=== PATIENT | male | born 1985 | race American Indian/Alaskan Native ===

== ENCOUNTER 2021-12-13 22:25 | Inpatient (IN) | payer SELFPAY ==
--- NOTE | 2021-12-13 23:18 | XRay Report ---
CHEST 2 VIEWS INDICATION / CLINICAL INFORMATION: Chest Pain. COMPARISON: None available. FINDINGS: SUPPORT DEVICES: None. HEART / MEDIASTINUM: No significant abnormality. LUNGS / PLEURA: No significant pulmonary or pleural abnormality. No pneumothorax. ADDITIONAL FINDINGS: No significant additional findings. IMPRESSION: 1. No active cardiopulmonary disease. Signer Name: Everette Kowalski II, MD Signed: 12/13/2021 11:14 PM Workstation Name: [id number]
--- NOTE | 2021-12-13 23:28 | Emergency Department Report ---
ED Shortness of Breath HPI - General Chief Complaint: Dyspnea/Respdistress Stated Complaint: SOB Time Seen by Provider: 12/13/21 22:50 Source: patient Mode of arrival: Ambulatory Limitations: No Limitations - History of Present Illness Initial Comments: Patient is a 36-year-old male presents emergency room with complaints of shortness of breath that began this morning at 5:30 AM once he got off work. He states he is also been experiencing palpitations and states that he feels like his heart is skipping. He denies any cough, fever, vomiting, diarrhea, hemoptysis, leg swelling, calf pain. He denies any recent travel, recent surgery, sick contacts, hormone use. Patient states that he was advised when he was in juvenile snf as a teenager that he had hypertension and he was put on medication at that time but states he has not seen a doctor in several years and has not been on any medication and he does not know what he previously took. No allergies to medication. He states he does have a family cardiac history under the age of 65. He is a current every day smoker. - Related Data Allergies Allergy/AdvReac Type Severity Reaction Status Date / Time No Known Allergies Allergy Unverified 12/13/21 22:51 ED Review of Systems ROS: Stated complaint: SOB Other details as noted in HPI Comment: All other systems reviewed and negative ED Past Medical Hx - Past Medical History Previous Medical History?: No - Surgical History Past Surgical History?: No ED Physical Exam - General Limitations: No Limitations General appearance: alert, in no apparent distress - Head Head exam: Present: atraumatic, normocephalic - Eye Eye exam: Present: normal appearance - ENT ENT exam: Present: mucous membranes moist - Respiratory Respiratory exam: Absent: wheezes, rales, rhonchi, stridor, chest wall tenderness, accessory muscle use, decreased breath sounds, prolonged expiratory - Cardiovascular Cardiovascular Exam: Present: normal rhythm, tachycardia, other (frequent PVCs) - Neurological Exam Neurological exam: Present: alert, oriented X3 - Psychiatric Psychiatric exam: Present: normal affect, normal mood - Skin Skin exam: Present: warm, dry, intact ED Course Vital Signs 12/13/21 12/14/21 12/14/21 22:48 00:44 00:45 Temperature 97.6 F 98.2 F Pulse Rate 60 102 H 104 H Respiratory 20 15 25 H Rate Blood Pressure Blood Pressure 186/105 119/92 [Right] O2 Sat by Pulse 87 94 100 Oximetry 12/14/21 12/14/21 12/14/21 01:00 01:16 01:30 Temperature Pulse Rate 104 H 104 H 121 H Respiratory 17 22 16 Rate Blood Pressure 119/92 119/92 124/88 Blood Pressure [Right] O2 Sat by Pulse 95 92 92 Oximetry 12/14/21 12/14/21 12/14/21 02:00 03:46 04:00 Temperature Pulse Rate 100 H 97 H 99 H Respiratory 17 20 20 Rate Blood Pressure 131/86 131/86 147/102 Blood Pressure [Right] O2 Sat by Pulse 91 94 92 Oximetry - Consultations Consultation #1: 12/14/21 03:[address] Wagner, vascular surgery regarding patient presentation and results, he agrees with heparin drip, he advised n.p.o. except small sips of water with medications, advised hospitalist admission and he will consult on patient 12/14/21 03:[address] Pittman, hospitalist regarding patient presentation, results, consultations, will accept and resume care of patient, will admit to hospitalist service, advised IMCU admission ED Medical Decision Making - Lab Data Result diagrams: 12/14/21 02:55 12/13/21 23:16 Lab Results 12/13/21 12/13/21 12/13/21 Range/Units 23:16 23:16 23:16 WBC 12.0 H (4.5-11.0) K/mm3 RBC 5.53 H (3.65-5.03) M/mm3 Hgb 15.5 H (11.8-15.2) gm/dl Hct 48.7 H (35.5-45.6) % MCV 88 (84-94) fl MCH 28 (28-32) pg MCHC 32 (32-34) % RDW 14.3 (13.2-15.2) % Plt Count 287 (140-440) K/mm3 Lymph % (Auto) 10.3 L (13.4-35.0) % [place] % (Auto) 6.7 (0.0-7.3) % Eos % (Auto) 1.1 (0.0-4.3) % Baso % (Auto) 0.3 (0.0-1.8) % Lymph # (Auto) 1.2 (1.2-5.4) K/mm3 [place] # (Auto) 0.8 (0.0-0.8) K/mm3 Eos # (Auto) 0.1 (0.0-0.4) K/mm3 Baso # (Auto) 0.0 (0.0-0.1) K/mm3 Seg Neutrophils % 81.6 H (40.0-70.0) % Seg Neutrophils # 9.8 H (1.8-7.7) K/mm3 PT 14.4 (12.2-14.9) Sec. INR 1.01 (0.87-1.13) APTT 30.7 (24.2-36.6) Sec. D-Dimer 3670.36 H (0-234) ng/mlDDU Sodium 135 L (137-145) mmol/L Potassium 4.3 (3.6-5.0) mmol/L Chloride 97.8 L (98-107) mmol/L Carbon Dioxide 24 (22-30) mmol/L Anion Gap 18 mmol/L BUN 15 (9-20) mg/dL Creatinine 1.0 (0.8-1.3) mg/dL Estimated GFR > 60 ml/min BUN/Creatinine Ratio 15 % Glucose 137 H (75-100) mg/dL Calcium 9.2 (8.4-10.2) mg/dL Magnesium (1.7-2.3) mg/dL Total Bilirubin 0.60 (0.1-1.2) mg/dL AST 18 (5-40) units/L ALT 22 (7-56) units/L Alkaline Phosphatase 135 H (35-129) units/L Troponin T 0.012 (0.00-0.029) ng/mL NT-Pro-B Natriuret Pep (0-450) pg/mL Total Protein 8.3 H (6.3-8.2) g/dL Albumin 4.2 (3.9-5) g/dL Albumin/Globulin Ratio 1.0 % TSH (0.270-4.200) mlU/mL 12/13/21 12/13/21 12/14/21 Range/Units 23:16 23:16 02:07 WBC (4.5-11.0) K/mm3 RBC (3.65-5.03) M/mm3 Hgb (11.8-15.2) gm/dl Hct (35.5-45.6) % MCV (84-94) fl MCH (28-32) pg MCHC (32-34) % RDW (13.2-15.2) % Plt Count (140-440) K/mm3 Lymph % (Auto) (13.4-35.0) % [place] % (Auto) (0.0-7.3) % Eos % (Auto) (0.0-4.3) % Baso % (Auto) (0.0-1.8) % Lymph # (Auto) (1.2-5.4) K/mm3 [place] # (Auto) (0.0-0.8) K/mm3 Eos # (Auto) (0.0-0.4) K/mm3 Baso # (Auto) (0.0-0.1) K/mm3 Seg Neutrophils % (40.0-70.0) % Seg Neutrophils # (1.8-7.7) K/mm3 PT (12.2-14.9) Sec. INR (0.87-1.13) APTT (24.2-36.6) Sec. D-Dimer (0-234) ng/mlDDU Sodium (137-145) mmol/L Potassium (3.6-5.0) mmol/L Chloride (98-107) mmol/L Carbon Dioxide (22-30) mmol/L Anion Gap mmol/L BUN (9-20) mg/dL Creatinine (0.8-1.3) mg/dL Estimated GFR ml/min BUN/Creatinine Ratio % Glucose (75-100) mg/dL Calcium (8.4-10.2) mg/dL Magnesium 1.90 (1.7-2.3) mg/dL Total Bilirubin (0.1-1.2) mg/dL AST (5-40) units/L ALT (7-56) units/L Alkaline Phosphatase (35-129) units/L Troponin T < 0.010 (0.00-0.029) ng/mL NT-Pro-B Natriuret Pep 1405 H (0-450) pg/mL Total Protein (6.3-8.2) g/dL Albumin (3.9-5) g/dL Albumin/Globulin Ratio % TSH 2.130 (0.270-4.200) mlU/mL 12/14/21 12/14/21 Range/Units 02:55 02:55 WBC (4.5-11.0) K/mm3 RBC (3.65-5.03) M/mm3 Hgb 14.6 (11.8-15.2) gm/dl Hct 45.6 (35.5-45.6) % MCV (84-94) fl MCH (28-32) pg MCHC (32-34) % RDW (13.2-15.2) % Plt Count 257 (140-440) K/mm3 Lymph % (Auto) (13.4-35.0) % [place] % (Auto) (0.0-7.3) % Eos % (Auto) (0.0-4.3) % Baso % (Auto) (0.0-1.8) % Lymph # (Auto) (1.2-5.4) K/mm3 [place] # (Auto) (0.0-0.8) K/mm3 Eos # (Auto) (0.0-0.4) K/mm3 Baso # (Auto) (0.0-0.1) K/mm3 Seg Neutrophils % (40.0-70.0) % Seg Neutrophils # (1.8-7.7) K/mm3 PT 15.0 H (12.2-14.9) Sec. INR 1.06 (0.87-1.13) APTT 33.1 (24.2-36.6) Sec. D-Dimer (0-234) ng/mlDDU Sodium (137-145) mmol/L Potassium (3.6-5.0) mmol/L Chloride (98-107) mmol/L Carbon Dioxide (22-30) mmol/L Anion Gap mmol/L BUN (9-20) mg/dL Creatinine (0.8-1.3) mg/dL Estimated GFR ml/min BUN/Creatinine Ratio % Glucose (75-100) mg/dL Calcium (8.4-10.2) mg/dL Magnesium (1.7-2.3) mg/dL Total Bilirubin (0.1-1.2) mg/dL AST (5-40) units/L ALT (7-56) units/L Alkaline Phosphatase (35-129) units/L Troponin T (0.00-0.029) ng/mL NT-Pro-B Natriuret Pep (0-450) pg/mL Total Protein (6.3-8.2) g/dL Albumin (3.9-5) g/dL Albumin/Globulin Ratio % TSH (0.270-4.200) mlU/mL - EKG Data EKG shows normal: sinus rhythm Rate: tachycardia (111 bpm) - EKG Data 12/14/21 06:07 RAD ventricular bigemeny probable LAE no STEMI - Radiology Data Radiology results: report reviewed Ordering Physician: LANCE GUARDADO Date of Service: 12/13/21 Procedure(s): XR chest routine 2V Accession Number(s): [id number] cc: LANCE GUARDADO Fluoro Time In Minutes: CHEST 2 VIEWS INDICATION / CLINICAL INFORMATION: Chest Pain. COMPARISON: None available. FINDINGS: SUPPORT DEVICES: None. HEART / MEDIASTINUM: No significant abnormality. LUNGS / PLEURA: No significant pulmonary or pleural abnormality. No pneumothorax. ADDITIONAL FINDINGS: No significant additional findings. IMPRESSION: 1. No active cardiopulmonary disease. Signer Name: Savage Bustillos II, MD Signed: 12/13/2021 11:14 PM Workstation Name: [id number] Transcribed By: AMY Dictated By: SAVAGE BUSTILLOS II, MD Electronically Authenticated By: SAVAGE BUSTILLOS II, MD Signed Date/Time: 12/13/212313 DD/ 12 TD/TT: Ordering Physician: LANCE GUARDADO Date of Service: 12/14/21 Procedure(s): CT angio chest Accession Number(s): [id number] cc: LANCE GUARDADO CTA CHEST WITH CONTRAST INDICATION / CLINICAL INFORMATION: Pt complains of chest pain with S.O.B., Hypoxia and Tachycardia. TECHNIQUE: Axial CT images were obtained through the chest after injection of IV contrast. 3 plane MIP and/or 3D reconstructions were produced. All CT scans at this location are performed using CT dose reduction for ALARA by means of automated exposure control. COMPARISON: None available. FINDINGS: VASCULAR FINDINGS: PULMONARY ARTERY: Extensive bilateral pulmonary artery emboli with nearly occlusive emboli within the right lower lobe lobar, right middle lobe lobar, and multiple right lower lobe segmental pulmonary artery branches. Additional nearly occlusive thrombus is demonstrated within the left lower lobe lobar, segmental, and multiple subsegmental branches. Thrombus additionally extends to involve the left upper lobe subsegmental and lingular branches and within the right upper lobe. The segmental and subsegmental branches. Minimal reflux of contrast within the hepatic venous system. No obvious filling of the ventricular septum. No intracardiac thrombus.. THORACIC AORTA: No significant abnormality. CORONARY ARTERY CALCIFICATION: None. NONVASCULAR FINDINGS: LOWER NECK:Soft tissues of the lower neck and thyroid demonstrate no significant abnormalities or acute findings. HEART: No significant abnormality. MEDIASTINUM / JIMY: No significant abnormality. ESOPHAGUS: No significant abnormality. LYMPH NODES: No adenopathy within the axilla, mediastinum, or jimy. LUNGS: No acute air space or interstitial disease. PLEURA: No pleural effusion. No pneumothorax. THORACIC SOFT TISSUES: No significant abnormality of the chest wall or upper thoracic musculature. BONES: No significant skeletal abnormalities. ADDITIONAL CHEST FINDINGS: None. UPPER ABDOMEN: No significant abnormality. IMPRESSION: 1. Extensive bilateral pulmonary artery emboli as detailed. No specific fe atures of right ventricular strain, minimal reflux of contrast within the hepatic venous system is demonstrated. 2. No additional acute findings. CRITICAL RESULT Time of Discovery (COAL TRIMMER MACHINE OPERATOR/CDT): 0142 hours Time of Communication (COAL TRIMMER MACHINE OPERATOR/CDT): 0143 hours Licensed Practitioner Receiving Report: Read-Back Performed: Yes. Signer Name: Svaage Bustillos II, MD Signed: 12/14/2021 2:48 AM Workstation Name: [id number] Transcribed By: AMY Dictated By: SAVAGE BUSTILLOS II, MD Electronically Authenticated By: SAVAGE BUSTILLOS II, MD Signed Date/Time: 12/14/21247 DD/ 1 TD/TT: - Medical Decision Making Patient is a 36-year-old male presents emergency room with complaints of shortness of breath that began this morning at 5:30 AM once he got off work. He states he is also been experiencing palpitations and states that he feels like his heart is skipping. He denies any cough, fever, vomiting, diarrhea, hemoptysis, leg swelling, calf pain. He denies any recent travel, recent surgery, sick contacts, hormone use. Patient states that he was advised when he was in juvenile snf as a teenager that he had hypertension and he was put on medication at that time but states he has not seen a doctor in several years and has not been on any medication and he does not know what he previously took. No allergies to medication. He states he does have a family cardiac history under the age of 65. He is a current every day smoker. Initial vitals with elevated blood pressure which improved upon repeat, pt also found to be hypoxic at 87% on RA placed on 3L nasal cannula and improved to 95%. EKG shows tachycardia, right axis deviation, ventricular bigeminy, no STEMI. Chest x-ray 1. No active cardiopulmonary disease. lab significant for elevated D-dimer and elevated BNP. CTA chest: 1. Extensive bilateral pulmonary artery emboli as detailed. No specific features of right ventricular strain, minimal reflux of contrast within the hepatic venous system is demonstrated. 2. No additional acute findings. Patient started on heparin drip. discussed case with Dr. Abdulaziz De La Garza who advised vascular surgery consultation, agrees with heparin drip, and admit to hospitalist. Spoke to Dr. Wagner, vascular surgery regarding patient presentation and results, he agrees with heparin drip, he advised n.p.o. except small sips of water with medications, advised hospitalist admission and he will consult on patient. Spoke to Dr. Pittman, hospitalist regarding patient presentation, results, consultations, will accept and resume care of patient, will admit to hospitalist service, advised IMCU admission. Discussed all find ings with patient who is agreeable with admission. Critical Care Time: Yes Critical care time in (mins) excluding proc time.: 35 Critical care attestation.: If time is entered above; I have spent that time in minutes in the direct care of this critically ill patient, excluding procedure time. ED Disposition Clinical Impression: Bilateral pulmonary embolism, Bigeminy Acute respiratory failure Qualifiers: Respiratory failure complication: hypoxia Qualified Code(s): J96.01 - Acute respiratory failure with hypoxia Disposition: 09 ADMITTED INPATIENT Is pt being admited?: Yes Does the pt Need Aspirin: No Condition: Serious Time of Disposition: 03:04
[2021-12-14 00:21] LABS: Basophils % (Auto) 0.3 % (0.0-1.8); Eosinophils # (Auto) 0.1 K/mm3 (0.0-0.4); Eosinophils % (Auto) 1.1 % (0.0-4.3); Hematocrit 48.7 % (35.5-45.6); Hemoglobin 15.5 gm/dl (11.8-15.2); Lymphocytes # (Auto) 1.2 K/mm3 (1.2-5.4); Lymphocytes % (Auto) 10.3 % (13.4-35.0); Mean Corpuscular HGB Conc 32 % (32-34); Mean Corpuscular Volume 88 fl (84-94); Monocytes # (Auto) 0.8 K/mm3 (0.0-0.8); Monocytes % (Auto) 6.7 % (0.0-7.3); Platelet Count 287 K/mm3 (140-440); Red Blood Count 5.53 M/mm3 (3.65-5.03); Red Cell Distribution Width 14.3 % (13.2-15.2)
[2021-12-14 00:37] LABS: INR 1.01 (0.87-1.13)
[2021-12-14 00:38] LABS: Partial Thromboplastin Time 30.7 Sec. (24.2-36.6)
[2021-12-14 00:39] LABS: Alanine Aminotransferase 22 units/L (7-56); Albumin 4.2 g/dL (3.9-5); BUN/Creatinine Ratio 15; Blood Urea Nitrogen 15 mg/dL (9-20); Calcium 9.2 mg/dL (8.4-10.2); Hemolysis Index 3
[2021-12-14] MEDS ORDERED: HEPARIN 10,000 UNITS/10 ML VIAL IV ONE (02:38)
--- NOTE | 2021-12-14 02:48 | Cat Scan Report ---
CTA CHEST WITH CONTRAST INDICATION / CLINICAL INFORMATION: Pt complains of chest pain with S.O.B., Hypoxia and Tachycardia. TECHNIQUE: Axial CT images were obtained through the chest after injection of IV contrast. 3 plane [place] P and/or 3D reconstructions were produced. All CT scans at this location are performed using CT dose reduction for ALARA by means of automated exposure control. COMPARISON: None available. FINDINGS: VASCULAR FINDINGS: PULMONARY ARTERY: Extensive bilateral pulmonary artery emboli with nearly occlusive emboli within the right lower lobe lobar, right middle lobe lobar, and multiple right lower lobe segmental pulmonary a rtery branches. Additional nearly occlusive thrombus is demonstrated within the left lower lobe lobar , segmental, and multiple subsegmental branches. Thrombus additionally extends to involve the left up per lobe subsegmental and lingular branches and within the right upper lobe. The segmental and subseg mental branches. Minimal reflux of contrast within the hepatic venous system. No obvious filling of t he ventricular septum. No intracardiac thrombus.. THORACIC AORTA: No significant abnormality. CORONARY ARTERY CALCIFICATION: None. NONVASCULAR FINDINGS: LOWER NECK:Soft tissues of the lower neck and thyroid demonstrate no significant abnormalities or acu te findings. HEART: No significant abnormality. MEDIASTINUM / HAYLEY: No significant abnormality. ESOPHAGUS: No significant abnormality. LYMPH NODES: No adenopathy within the axilla, mediastinum, or hayley. LUNGS: No acute air space or interstitial disease. PLEURA: No pleural effusion. No pneumothorax. THORACIC SOFT TISSUES: No significant abnormality of the chest wall or upper thoracic musculature. BONES: No significant skeletal abnormalities. ADDITIONAL CHEST FINDINGS: None. UPPER ABDOMEN: No significant abnormality. IMPRESSION: 1. Extensive bilateral pulmonary artery emboli as detailed. No specific features of right ventricular strain, minimal reflux of contrast within the hepatic venous system is demonstrated. 2. No additional acute findings. CRITICAL RESULT Time of Discovery (AIRCRAFT MAINTENANCE SUPERVISOR/CDT): 0142 hours Time of Communication (AIRCRAFT MAINTENANCE SUPERVISOR/CDT): 0143 hours Licensed Practitioner Receiving Report: Read-Back Performed: Yes. Signer Name: Everette Kowalski II, MD Signed: 12/14/2021 2:48 AM Workstation Name: [id number]
[2021-12-14] MEDS ORDERED: HEPARIN/ 0.45% NACL DRIP 25,000 UNIT/500 ML BAG IV SCH (03:00)
[2021-12-14] MEDS ORDERED: HYDROmorphone 1 MG/1 ML INJ IV PRN (03:58)
[2021-12-14] MEDS ORDERED: MORPHINE 2 MG/1 ML INJ IV PRN (03:58)
[2021-12-14] MEDS ORDERED: ONDANSETRON 4 MG/2 ML INJ IV PRN (03:58)
[2021-12-14] MEDS ORDERED: ALBUTEROL 2.5 MG/3 ML NEBU IH PRN (03:58)
[2021-12-14] MEDS ORDERED: ACETAMINOPHEN 325 MG TAB PO PRN (03:58)
[2021-12-14] MEDS ORDERED: D5W/0.45% NACL 1,000 ML IV SCH (04:00)
--- NOTE | 2021-12-14 04:06 | History and Physical Report ---
History of Present Illness Date of examination: 12/14/21 Date of admission: 12/14/21 Chief complaint: Shortness of breath History of present illness: 36-year-old male with history of tobacco abuse was brought to the hospital because of shortness of breath that began this morning at 5:30 AM once he got off work. He states he is also been experiencing palpitations and states that he feels like his heart is skipping. He denies any cough, fever, vomiting, diarrhea, hemoptysis, leg swelling, calf pain. He denies any recent travel, recent surgery, sick contacts, hormone use. Patient states that he was advised when he was in juvenile prison as a teenager that he had hypertension and he was put on medication at that time but states he has not seen a doctor in several years and has not been on any medication and he does not know what he previously took. No allergies to medication. He states he does have a family cardiac history under the age of 65. He is a current every day smoker. In the emergency room patient is found to have PE.'s were going to admit the patient to the IMCU. We will put the patient on heparin drip and consult vascular surgeon to see the patient Past History Past Medical History: hypertension, other (Tobacco abuse) Medications and Allergies Allergies Allergy/AdvReac Type Severity Reaction Status Date / Time No Known Allergies Allergy Unverified 12/13/21 22:51 Active Meds: Active Medications Acetaminophen (Acetaminophen 325 Mg Tab) 650 mg PO Q4H PRN PRN Reason: Pain MILD(1-3)/Fever >100.5/MANTILLA Albuterol (Albuterol 2.5 Mg/3 Ml Nebu) 2.5 mg IH Q3HRT PRN PRN Reason: Shortness Of Breath Albuterol/Ipratropium (Ipratropium/Albuterol Sulfate 3 Ml Ampul.Neb) 1 ampul IH Q6HRT MINERVA Famotidine (Famotidine 20 Mg Tab) 20 mg PO BID MINERVA Hydromorphone HCl (Hydromorphone 1 Mg/1 Ml Inj) 0.5 mg IV Q3H PRN PRN Reason: Pain , Severe (7-10) Heparin Sodium/Sodium Chloride (Heparin/ 0.45% Nacl-25,000 Unit/500 Ml) 25,000 unit in 500 mls @ 24 mls/hr IV TITR MINERAV; Protocol Dextrose/Sodium Chloride (D5/0.45ns) 1,000 mls @ 100 mls/hr IV DIRECT MINERVA Morphine Sulfate (Morphine 2 Mg/1 Ml Inj) 2 mg IV Q4H PRN PRN Reason: Pain, Moderate (4-6) Ondansetron HCl (Ondansetron 4 Mg/2 Ml Inj) 4 mg IV Q8H PRN PRN Reason: Nausea And Vomiting Sodium Chloride (Sodium Chloride 0.9% 10 Ml Flush Syringe) 10 ml IV BID MINERVA Sodium Chloride (Sodium Chloride 0.9% 10 Ml Flush Syringe) 10 ml IV PRN PRN PRN Reason: LINE FLUSH Review of Systems Cardiovascular: shortness of breath, dyspnea on exertion Respiratory: shortness of breath, dyspnea on exertion Exam - Constitutional Vitals: Temp Pulse Resp BP Pulse Ox 98.2 F 100 H 17 131/86 91 12/14/21 00:45 12/14/21 02:00 12/14/21 02:00 12/14/21 02:00 12/14/21 02:00 General appearance: Present: no acute distress, well-nourished - EENT Eyes: Present: PERRL ENT: hearing intact, clear oral mucosa - Neck Neck: Present: supple, normal ROM - Respiratory Respiratory effort: normal Respiratory: bilateral: diminished - Cardiovascular Heart Sounds: Present: S1 & S2. Absent: rub, click - Extremities Extremities: pulses symmetrical, No edema Peripheral Pulses: within normal limits - Abdominal General gastrointestinal: Present: soft, non-tender, non-distended, normal bowel sounds Male genitourinary: Present: normal - Integumentary Integumentary: Present: clear, warm, dry - Musculoskeletal Musculoskeletal: gait normal, strength equal bilaterally - Psychiatric Psychiatric: appropriate mood/affect, intact judgment & insight - Neurologic Neurologic: CNII-XII intact, moves all extremities HEART Score - HEART Score Troponin: Troponin T < 0.010 ng/mL (0.00-0.029) 12/14/21 02:07 Results - Labs CBC & Chem 7: 12/13/21 23:16 12/13/21 23:16 Labs: Laboratory Last Values WBC 12.0 K/mm3 (4.5-11.0) H 12/13/21 23:16 RBC 5.53 M/mm3 (3.65-5.03) H 12/13/21 23:16 Hgb 15.5 gm/dl (11.8-15.2) H 12/13/21 23:16 Hct 48.7 % (35.5-45.6) H 12/13/21 23:16 MCV 88 fl (84-94) 12/13/21 23:16 MCH 28 pg (28-32) 12/13/21 23:16 MCHC 32 % (32-34) 12/13/21 23:16 RDW 14.3 % (13.2-15.2) 12/13/21 23:16 Plt Count 287 K/mm3 (140-440) 12/13/21 23:16 Lymph % (Auto) 10.3 % (13.4-35.0) L 12/13/21 23:16 [place] % (Auto) 6.7 % (0.0-7.3) 12/13/21 23:16 Eos % (Auto) 1.1 % (0.0-4.3) 12/13/21 23:16 Baso % (Auto) 0.3 % (0.0-1.8) 12/13/21 23:16 Lymph # (Auto) 1.2 K/mm3 (1.2-5.4) 12/13/21 23:16 [place] # (Auto) 0.8 K/mm3 (0.0-0.8) 12/13/21 23:16 Eos # (Auto) 0.1 K/mm3 (0.0-0.4) 12/13/21 23:16 Baso # (Auto) 0.0 K/mm3 (0.0-0.1) 12/13/21 23:16 Seg Neutrophils % 81.6 % (40.0-70.0) H 12/13/21 23:16 Seg Neutrophils # 9.8 K/mm3 (1.8-7.7) H 12/13/21 23:16 PT 14.4 Sec. (12.2-14.9) 12/13/21 23:16 INR 1.01 (0.87-1.13) 12/13/21 23:16 APTT 30.7 Sec. (24.2-36.6) 12/13/21 23:16 D-Dimer 3670.36 ng/mlDDU (0-234) H 12/13/21 23:16 Sodium 135 mmol/L (137-145) L 12/13/21 23:16 Potassium 4.3 mmol/L (3.6-5.0) 12/13/21 23:16 Chloride 97.8 mmol/L (98-107) L 12/13/21 23:16 Carbon Dioxide 24 mmol/L (22-30) 12/13/21 23:16 Anion Gap 18 mmol/L 12/13/21 23:16 BUN 15 mg/dL (9-20) 12/13/21 23:16 Creatinine 1.0 mg/dL (0.8-1.3) 12/13/21 23:16 Estimated GFR > 60 ml/min 12/13/21 23:16 BUN/Creatinine Ratio 15 % 12/13/21 23:16 Glucose 137 mg/dL (75-100) H 12/13/21 23:16 Calcium 9.2 mg/dL (8.4-10.2) 12/13/21 23:16 Magnesium 1.90 mg/dL (1.7-2.3) 12/13/21 23:16 Total Bilirubin 0.60 mg/dL (0.1-1.2) 12/13/21 23:16 AST 18 units/L (5-40) 12/13/21 23:16 ALT 22 units/L (7-56) 12/13/21 23:16 Alkaline Phosphatase 135 units/L (35-129) H 12/13/21 23:16 Troponin T < 0.010 ng/mL (0.00-0.029) 12/14/21 02:07 NT-Pro-B Natriuret Pep 1405 pg/mL (0-450) H 12/13/21 23:16 Total Protein 8.3 g/dL (6.3-8.2) H 12/13/21 23:16 Albumin 4.2 g/dL (3.9-5) 12/13/21 23:16 Albumin/Globulin Ratio 1.0 % 12/13/21 23:16 TSH 2.130 mlU/mL (0.270-4.200) 12/13/21 23:16 - Imaging and Cardiology CT scan - chest: report reviewed Assessment and Plan VTE prophylaxis?: Chemical Plan of care discussed with patient/family: Yes - Patient Problems (1) Bilateral pulmonary embolism Current Visit: Yes Status: Acute Plan to address problem: Admit the patient to the IMCU. Oxygen via nasal cannula 3 L/min. DuoNeb by nebulizer every 4 hours. Albuterol via nebulizer every 4 hours as needed. Heparin drip as per protocol. Will consult vascular surgeon for evaluation (2) Acute respiratory failure Current Visit: Yes Status: Acute Qualifiers: Respiratory failure complication: hypoxia Qualified Code(s): J96.01 - Acute respiratory failure with hypoxia Plan to address problem: Oxygen via nasal cannula 3 L/min. DuoNeb by nebulizer every 4 hours. Albuterol via nebulizer every 4 hours as needed. Heparin drip as per protocol. Will consult vascular surgeon for evaluation (3) Tobacco abuse Current Visit: Yes Status: Acute Plan to address problem: We counseled the patient regarding quitting smoking. We will put the patient on nicotine patch if needed (4) DVT prophylaxis Current Visit: Yes Status: Acute Plan to address problem: Heparin drip for DVT prophylaxis. Pepcid 20 mg p.o. twice daily for GI prophylaxis. Patient is a full code
[2021-12-14 04:29] LABS: Hematocrit 45.6 % (35.5-45.6); Hemoglobin 14.6 gm/dl (11.8-15.2)
[2021-12-14 05:38] LABS: INR 1.06 (0.87-1.13)
[2021-12-14 05:39] LABS: Partial Thromboplastin Time 33.1 Sec. (24.2-36.6)
[2021-12-14] MEDS ORDERED: IPRATROPIUM/ALBUTEROL SULFATE 3 ML AMPUL.NEB IH SCH (08:00)
--- NOTE | 2021-12-14 08:14 | Progress Note ---
Assessment and Plan Assessment and plan: History of present illness: 36-year-old male with history of tobacco abuse was brought to the hospital because of shortness of breath that began this morning at 5:30 AM once he got off work. He states he is also been experiencing palpitations and states that he feels like his heart is skipping. He denies any cough, fever, vomiting, diarrhea, hemoptysis, leg swelling, calf pain. He denies any recent travel, recent surgery, sick contacts, hormone use. Patient states that he was advised when he was in juvenile snf as a teenager that he had hypertension and he was put on medication at that time but states he has not seen a doctor in several years and has not been on any medication and he does not know what he previously took. No allergies to medication. He states he does have a family cardiac history under the age of 65. He is a current every day smoker. In the emergency room patient is found to have PE.'s were going to admit the patient to the [facility]. We will put the patient on heparin drip and consult vascular surgeon to see the patient. Hospital Course to date 12/14: Remains hemodynamically stable. On nasal cannula. Continue heparin infusion. Vascular surgery consulted on admission. Awaiting recommendations. (1) Bilateral pulmonary embolism Current Visit: Yes Status: Acute Plan to address problem: Denies prior hx of VTE, no recent surgery, travel. Denies active malignancy. Admit the patient to the [facility]. Oxygen via nasal cannula 3 L/min. DuoNeb by nebulizer every 4 hours. Albuterol via nebulizer every 4 hours as needed. Heparin drip as per protocol. consult vascular surgeon for evaluation Will likely need watermelon inspector anticoagulation, possibly life long as this appears unprovoked. (2) Acute hypoxic respiratory failure Current Visit: Yes Status: Acute Qualifiers: Respiratory failure complication: hypoxia Qualified Code(s): J96.01 - Acute respiratory failure with hypoxia Plan to address problem: Oxygen via nasal cannula 3 L/min. DuoNeb by nebulizer every 4 hours. Albuterol via nebulizer every 4 hours as needed. Heparin drip as per protocol. consult vascular surgeon (3) Tobacco abuse Current Visit: Yes Status: Acute Plan to address problem: - counseled the patient regarding quitting smoking. + 15 mins (4) DVT prophylaxis Current Visit: Yes Status: Acute Plan to address problem: Heparin drip for DVT prophylaxis. Pepcid 20 mg p.o. twice daily for GI prophylaxis. Patient is a full code #Advance care planning Disease education conducted, care plan discussed, diagnoses discussed, prognosis discussed, patient is full code, patient acknowledges understanding and agree with care plan, +30 minutes. The high probability of a clinically significant, sudden or life threatening deterioration of the [pulmonary, heme] system(s) required my full and direct attention, intervention and personal management. The aggregate critical care time was [60] minutes. This time is in addition to time spent performing reported procedures but includes the following: [x] Data Review and interpretation [x] Patient assessment and monitoring of vital signs [x] Documentation [x] Medication orders and management History Interval history: No complaints this AM. He denied any chest pain or dizziness. Remains on 3l nc. Patient states he has no prior hx of VTE. He denied any recent surgeries/travel. 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 He denied any active malignancies on my encounter. Hospitalist Physical - Physical exam Narrative exam: Physical Exam: VITAL SIGNS: Reviewed. GENERAL: The patient appears normally developed, Vital signs as documented. on 3l nc HEAD: No signs of head trauma. EYES: Pupils are equal. Extraocular motions intact. EARS: Hearing grossly intact. MOUTH: Oropharynx is normal. NECK: No adenopathy, no JVD. CHEST: Chest with clear breath sounds bilaterally. No wheezes, rales, or rhonchi. CARDIAC: Regular rate and rhythm. S1 and S2, without murmurs, gallops, or rubs. VASCULAR: No Edema. Peripheral pulses normal and equal in all extremities. ABDOMEN: Soft, non tender and non distended. No rebound or guarding, and no masses palpated. Bowel Sounds normal. MUSCULOSKELETAL: Good range of motion of all major joints. Extremities without clubbing, cyanosis or edema. NEUROLOGIC EXAM: Alert and oriented x 4. no focal sensory or strength deficits. PSYCHIATRIC: Mood normal. SKIN: detail exam as documented in skin assessment - Constitutional Vitals: Temp Pulse Resp BP Pulse Ox 98.2 F 99 H 20 147/102 92 12/14/21 00:45 12/14/21 04:00 12/14/21 04:00 12/14/21 04:00 12/14/21 04:00 General appearance: Present: no acute distress, well-nourished HEART Score - HEART Score Troponin: Troponin T < 0.010 ng/mL (0.00-0.029) 12/14/21 02:07 Results - Labs CBC & Chem 7: 12/14/21 02:55 12/13/21 23:16 Labs: Laboratory Last Values WBC 12.0 K/mm3 (4.5-11.0) H 12/13/21 23:16 RBC 5.53 M/mm3 (3.65-5.03) H 12/13/21 23:16 Hgb 14.6 gm/dl (11.8-15.2) 12/14/21 02:55 Hct 45.6 % (35.5-45.6) 12/14/21 02:55 MCV 88 fl (84-94) 12/13/21 23:16 MCH 28 pg (28-32) 12/13/21 23:16 MCHC 32 % (32-34) 12/13/21 23:16 RDW 14.3 % (13.2-15.2) 12/13/21 23:16 Plt Count 257 K/mm3 (140-440) 12/14/21 02:55 Lymph % (Auto) 10.3 % (13.4-35.0) L 12/13/21 23:16 Woodson % (Auto) 6.7 % (0.0-7.3) 12/13/21 23:16 Eos % (Auto) 1.1 % (0.0-4.3) 12/13/21 23:16 Baso % (Auto) 0.3 % (0.0-1.8) 12/13/21 23:16 Lymph # (Auto) 1.2 K/mm3 (1.2-5.4) 12/13/21 23:16 Woodson # (Auto) 0.8 K/mm3 (0.0-0.8) 12/13/21 23:16 Eos # (Auto) 0.1 K/mm3 (0.0-0.4) 12/13/21 23:16 Baso # (Auto) 0.0 K/mm3 (0.0-0.1) 12/13/21 23:16 Seg Neutrophils % 81.6 % (40.0-70.0) H 12/13/21 23:16 Seg Neutrophils # 9.8 K/mm3 (1.8-7.7) H 12/13/21 23:16 PT 15.0 Sec. (12.2-14.9) H 12/14/21 02:55 INR 1.06 (0.87-1.13) 12/14/21 02:55 APTT 33.1 Sec. (24.2-36.6) 12/14/21 02:55 D-Dimer 3670.36 ng/mlDDU (0-234) H 12/13/21 23:16 Sodium 135 mmol/L (137-145) L 12/13/21 23:16 Potassium 4.3 mmol/L (3.6-5.0) 12/13/21 23:16 Chloride 97.8 mmol/L (98-107) L 12/13/21 23:16 Carbon Dioxide 24 mmol/L (22-30) 12/13/21 23:16 Anion Gap 18 mmol/L 12/13/21 23:16 BUN 15 mg/dL (9-20) 12/13/21 23:16 Creatinine 1.0 mg/dL (0.8-1.3) 12/13/21 23:16 Estimated GFR > 60 ml/min 12/13/21 23:16 BUN/Creatinine Ratio 15 % 12/13/21 23:16 Glucose 137 mg/dL (75-100) H 12/13/21 23:16 Calcium 9.2 mg/dL (8.4-10.2) 12/13/21 23:16 Magnesium 1.90 mg/dL (1.7-2.3) 12/13/21 23:16 Total Bilirubin 0.60 mg/dL (0.1-1.2) 12/13/21 23:16 AST 18 units/L (5-40) 12/13/21 23:16 ALT 22 units/L (7-56) 12/13/21 23:16 Alkaline Phosphatase 135 units/L (35-129) H 12/13/21 23:16 Troponin T < 0.010 ng/mL (0.00-0.029) 12/14/21 02:07 NT-Pro-B Natriuret Pep 1405 pg/mL (0-450) H 12/13/21 23:16 Total Protein 8.3 g/dL (6.3-8.2) H 12/13/21 23:16 Albumin 4.2 g/dL (3.9-5) 12/13/21 23:16 Albumin/Globulin Ratio 1.0 % 12/13/21 23:16 TSH 2.130 mlU/mL (0.270-4.200) 12/13/21 23:16 Active Medications - Current Medications Current Medications: Generic Name Dose Route Start Last Admin Trade Name Freq PRN Reason Stop Dose Admin Acetaminophen 650 mg 12/14/21 03:58 Acetaminophen 325 Mg Tab PO Q4H PRN Pain MILD(1-3)/Fever >100.5/MANTILLA Albuterol 2.5 mg 12/14/21 03:58 Albuterol 2.5 Mg/3 Ml Nebu IH Q3HRT PRN Shortness Of Breath Albuterol/Ipratropium 1 ampul 12/14/21 08:00 Ipratropium/Albuterol Sulfate 3 Ml Ampul.Neb IH Q6HRT MINERVA Famotidine 20 mg 12/14/21 10:00 Famotidine 20 Mg Tab PO BID MINERVA Hydromorphone HCl 0.5 mg 12/14/21 03:58 Hydromorphone 1 Mg/1 Ml Inj IV Q3H PRN Pain , Severe (7-10) Heparin Sodium/Sodium Chloride 25,000 unit in 500 mls @ 24 mls/hr 12/14/21 03:00 12/14/21 03:51 Heparin/ 0.45% Nacl-25,000 Unit/500 Ml IV 1,200 units/hr TITR MINERVA 24 mls/hr Administration Protocol 1,200 UNITS/HR Dextrose/Sodium Chloride 1,000 mls @ 100 mls/hr 12/14/21 04:00 12/14/21 04:13 D5/0.45ns IV 100 mls/hr DIRECT MINERVA Administration Morphine Sulfate 2 mg 12/14/21 03:58 Morphine 2 Mg/1 Ml Inj IV Q4H PRN Pain, Moderate (4-6) Ondansetron HCl 4 mg 12/14/21 03:58 Ondansetron 4 Mg/2 Ml Inj IV Q8H PRN Nausea And Vomiting Sodium Chloride 10 ml 12/14/21 10:00 Sodium Chloride 0.9% 10 Ml Flush Syringe IV BID MINERVA Sodium Chloride 10 ml 12/14/21 03:58 Sodium Chloride 0.9% 10 Ml Flush Syringe IV PRN PRN LINE FLUSH
--- NOTE | 2021-12-14 10:56 | Electrocardiograph Report ---
[facility] Test Date: 2021-12-13 Test Time: 22:43:09 Pat Name: LORI ORTIZ Department: Room: [place] [address] Gender: M Property Specialist: JOELLEN : 1985 Requested By: SPENCER BROWN Order Number: [id number] Reading MD: Ray Fierro Measurements Intervals [place] Rate: 111 P: 67 LA: 180 QRS: 11 QRSD: 78 T: 78 QT: 345 QTc: 470 Interpretive Statements Sinus tachycardia Ventricular bigeminy Probable left atrial enlargement No previous ECG available for comparison Electronically Signed On 12-14-2021 10:55:57 EST by Ray Fierro
[2021-12-14] MEDS ORDERED: HEPARIN 10,000 UNITS/10 ML VIAL ONE ×2 (11:35→13:08)
[2021-12-14] MEDS ORDERED: ALTEPLASE 10 MG in SODIUM CHLORIDE 0.9% 250ML 250 ML IV STA (12:42)
[2021-12-14] MEDS ORDERED: ALTEPLASE 10 MG in SODIUM CHLORIDE 0.9% 250ML 250 ML EKOSDLUMEN STA (12:42)
--- NOTE | 2021-12-14 12:42 | Consultation ---
History of Present Illness - Reason for Consult Consult date: 12/14/21 Submassive pulmonary embolism - History of Present Illness Patient with a history of 2 days of progressive worsening chest pain and shortness of breath prior to his presentation at [facility]. The patient has not been vaccinated for COVID-19. [address] CT scan of his chest was performed and the patient was noted to have significant bilateral pulmonary emboli extending from the bilateral main pulmonary arteries distally. On examination, the patient is short of breath. Labs noted. Past History Past Medical History: hypertension, other (Tobacco abuse) Medications and Allergies Allergies Allergy/AdvReac Type Severity Reaction Status Date / Time No Known Allergies Allergy Unverified 12/13/21 22:51 Active Meds: Active Medications Acetaminophen (Acetaminophen 325 Mg Tab) 650 mg PO Q4H PRN PRN Reason: Pain MILD(1-3)/Fever >100.5/MANTILLA Albuterol (Albuterol 2.5 Mg/3 Ml Nebu) 2.5 mg IH Q3HRT PRN PRN Reason: Shortness Of Breath Albuterol/Ipratropium (Ipratropium/Albuterol Sulfate 3 Ml Ampul.Neb) 1 ampul IH Q6HRT MINERVA Famotidine (Famotidine 20 Mg Tab) 20 mg PO BID MINERVA Hydromorphone HCl (Hydromorphone 1 Mg/1 Ml Inj) 0.5 mg IV Q3H PRN PRN Reason: Pain , Severe (7-10) Heparin Sodium/Sodium Chloride (Heparin/ 0.45% Nacl-25,000 Unit/500 Ml) 25,000 unit in 500 mls @ 24 mls/hr IV TITR MINERVA; Protocol Last Titration: 12/14/21 11:40 Dose: 1,203 units/hr, 24.06 mls/hr Dextrose/Sodium Chloride (D5/0.45ns) 1,000 mls @ 100 mls/hr IV DIRECT MINERVA Last Admin: 12/14/21 04:13 Dose: 100 mls/hr Morphine Sulfate (Morphine 2 Mg/1 Ml Inj) 2 mg IV Q4H PRN PRN Reason: Pain, Moderate (4-6) Ondansetron HCl (Ondansetron 4 Mg/2 Ml Inj) 4 mg IV Q8H PRN PRN Reason: Nausea And Vomiting Sodium Chloride (Sodium Chloride 0.9% 10 Ml Flush Syringe) 10 ml IV BID MINERVA Sodium Chloride (Sodium Chloride 0.9% 10 Ml Flush Syringe) 10 ml IV PRN PRN PRN Reason: LINE FLUSH Review of Systems All systems: negative Exam - Constitutional Vitals: Temp Pulse Resp BP Pulse Ox 98.2 F 99 H 24 135/80 92 12/14/21 00:45 12/14/21 10:00 12/14/21 10:00 12/14/21 10:00 12/14/21 10:00 General appearance: Present: mild distress - EENT Eyes: Present: EOM intact ENT: hearing intact - Neck Neck: Present: supple, normal ROM - Respiratory Respiratory effort: normal - Extremities Extremities: Full ROM (Symmetric lower extremities, no tenderness or edema) - Abdominal General gastrointestinal: Present: deferred Male genitourinary: Present: deferred - Rectal Rectal Exam: deferred - Psychiatric Psychiatric: appropriate mood/affect, cooperative Results - Labs CBC & Chem 7: 12/14/21 02:55 12/13/21 23:16 Labs: Abnormal lab results 12/13/21 12/13/21 12/13/21 Range/Units 23:16 23:16 23:16 WBC 12.0 H (4.5-11.0) K/mm3 RBC 5.53 H (3.65-5.03) M/mm3 Hgb 15.5 H (11.8-15.2) gm/dl Hct 48.7 H (35.5-45.6) % Lymph % (Auto) 10.3 L (13.4-35.0) % Seg Neutrophils % 81.6 H (40.0-70.0) % Seg Neutrophils # 9.8 H (1.8-7.7) K/mm3 PT (12.2-14.9) Sec. D-Dimer 3670.36 H (0-234) ng/mlDDU Heparin Anti-Xa Level (0.3-0.7) U.I./ml Sodium 135 L (137-145) mmol/L Chloride 97.8 L (98-107) mmol/L Glucose 137 H (75-100) mg/dL Alkaline Phosphatase 135 H (35-129) units/L NT-Pro-B Natriuret Pep (0-450) pg/mL Total Protein 8.3 H (6.3-8.2) g/dL 12/13/21 12/14/21 12/14/21 Range/Units 23:16 02:55 10:27 WBC (4.5-11.0) K/mm3 RBC (3.65-5.03) M/mm3 Hgb (11.8-15.2) gm/dl Hct (35.5-45.6) % Lymph % (Auto) (13.4-35.0) % Seg Neutrophils % (40.0-70.0) % Seg Neutrophils # (1.8-7.7) K/mm3 PT 15.0 H (12.2-14.9) Sec. D-Dimer (0-234) ng/mlDDU Heparin Anti-Xa Level < 0.10 L (0.3-0.7) U.I./ml Sodium (137-145) mmol/L Chloride (98-107) mmol/L Glucose (75-100) mg/dL Alkaline Phosphatase (35-129) units/L NT-Pro-B Natriuret Pep 1405 H (0-450) pg/mL Total Protein (6.3-8.2) g/dL - Imaging and Cardiology CT scan - chest: image reviewed Assessment and Plan Patient will be brought to the [facility] for placement of bilateral pulmonary thrombolytics catheters. Additionally, an ultrasound of his legs will be performed to determine if any residual DVT is present.
[2021-12-14] MEDS ORDERED: SODIUM CHLORIDE 0.9% 1000 ML 1,000 ML EKOSCLUMEN SCH ×2 (13:00)
[2021-12-14] MEDS ORDERED: SODIUM CHLORIDE 0.9% 1000 ML 1,000 ML IV SCH (13:00)
[2021-12-14] MEDS ORDERED: SODIUM CHLORIDE 0.9% 1000 ML 1,000 ML SHEATH SCH ×2 (13:00)
[2021-12-14] MEDS ORDERED: HEPARIN/ 0.45% NACL DRIP 25,000 UNIT/500 ML BAG SHEATH SCH ×2 (13:00)
[2021-12-14] MEDS ORDERED: HEPARIN/NS 5000 UNIT/500ML 1,000 ML IR ONE (13:08)
[2021-12-14] MEDS ORDERED: MIDAZOLAM 2 MG/2 ML INJ ONE (13:08)
[2021-12-14] MEDS ORDERED: fentaNYL 100 MCG/2 ML INJ ONE (13:08)
[2021-12-14] MEDS ORDERED: LIDOCAINE (2%) 20 MG/1 ML VIAL 20 ML MDV INFILTRATI ONE ×2 (13:09→13:35)
[2021-12-14] MEDS ORDERED: SODIUM CHLORIDE 0.9% 500 ML 500 ML ONE (13:18)
[2021-12-14] MEDS ORDERED: ceFAZolin/Water 2 GM/20 ML 2 GM/20 ML SYRINGE IV ONE (13:26)
[2021-12-14] MEDS ORDERED: ALTEPLASE 2 MG INJ ONE (13:26)
[2021-12-14] MEDS ORDERED: WATER FOR INJ Sterile (PF) 10 ML ONE (13:27)
[2021-12-14] MEDS ORDERED: MIDAZOLAM 2 MG/2 ML INJ IV ONE (13:29)
[2021-12-14] MEDS ORDERED: ceFAZolin/STERILE WATER 2 GM/20 ML SYRINGE IV ONE (13:30)
[2021-12-14 13:49] LABS: Basophils % (Auto) 0.4 % (0.0-1.8); Eosinophils # (Auto) 0.2 K/mm3 (0.0-0.4); Eosinophils % (Auto) 1.6 % (0.0-4.3); Hematocrit 46.7 % (35.5-45.6); Lymphocytes # (Auto) 1.3 K/mm3 (1.2-5.4); Lymphocytes % (Auto) 13.5 % (13.4-35.0); Mean Corpuscular HGB Conc 32 % (32-34); Mean Corpuscular Volume 88 fl (84-94); Monocytes # (Auto) 0.7 K/mm3 (0.0-0.8); Monocytes % (Auto) 7.7 % (0.0-7.3); Platelet Count 247 K/mm3 (140-440); Red Blood Count 5.33 M/mm3 (3.65-5.03); Red Cell Distribution Width 13.9 % (13.2-15.2)
[2021-12-14] MEDS ORDERED: HEPARIN 10,000 UNITS/10 ML VIAL VEN-SHEATH ONE (13:57)
[2021-12-14] MEDS ORDERED: ALTEPLASE 2 MG INJ VEN-SHEATH ONE (13:58)
[2021-12-14 13:59] LABS: Partial Thromboplastin Time 30.7 Sec. (24.2-36.6)
[2021-12-14] MEDS ORDERED: MORPHINE 4 MG/1 ML INJ IV PRN (14:00)
[2021-12-14] MEDS ORDERED: traMADol 50 MG TAB PO PRN (14:00)
[2021-12-14] MEDS ORDERED: SODIUM CHLORIDE 0.9% 1000 ML 2,000 ML ONE (14:08)
[2021-12-14 14:09] LABS: BUN/Creatinine Ratio 10; Blood Urea Nitrogen 11 mg/dL (9-20); Calcium 8.4 mg/dL (8.4-10.2); Hemolysis Index 12
--- NOTE | 2021-12-14 14:12 | Operative Report ---
Operative Report Operative Report: Exam: Placement of bilateral pulmonary thrombolytics catheters Clinical indication: Patient with a history of submassive pulmonary embolism Date: 12/14/2021 Procedure: Following an explanation of the risk, benefits and alternatives; written informed consent was obtained. The patient was [facility] the [facility] og[facility] and placed in supine position on the examination table. Initial ultrasound evaluation of his leg demonstrated patent right common femoral vein. The patient's right leg and groin were prepped and draped in the usual sterile fashion. 1% lidocaine was used for anesthesia. Under ultrasound guidance, the right common femoral vein was cannulated twice using a 7 cm 18-gauge needle. A 0.035 guidewire was advanced through each puncture site. The needle was removed. Two six Cymro sheaths were then advanced over the guidewires and the guidewires were removed. Through the superior sheath, a JR4 catheter and 0.035 Glidewire were advanced under fluoroscopy to the heart. Selective cannulation of the right atrium, right ventricle and pulmonary outflow tract were performed. The catheter and guidewire were then advanced into the left main pulmonary artery and into the left lower lobe pulmonary artery. Once the catheter was in the left lower lobe pulmonary artery, a gentle puff of contrast demonstrated appropriate intra- arterial positioning. A J-wire was then advanced through the catheter and the catheter removed. A 12 cm infusion length 106 cm total length EKOS thromboly tics catheter was then advanced over the guidewire on the left from the left lower lobe pulmonary artery to the left main pulmonary artery. The guidewire was removed and the infusion wire inserted. Through the inferior sheath the JR catheter and 0.035 Glidewire were then advanced under fluoroscopy to the heart and pulmonary outflow track. Selective cannulation of the right main pulmonary artery and right lower lobe pulmonary artery was then performed under fluoroscopy. With the catheter in the right lower lobe pulmonary artery, contrast was injected which demonstrates appropriate intra-arterial positioning. A J-wire was then advanced through the catheter and the catheter removed. A 12 cm infusion length 106 cm total length EKOS thrombolytic catheter was then advanced over the guidewire from the right lower lobe pulmonary artery to the right main pulmonary artery. The guidewire was removed and the infusion wire inserted. The sheaths were attached to the skin surface using 2-0 Ethilon suture. The catheters were then attached to the sheaths using 2-0 Ethilon suture. Sterile dressings were applied. The sheaths were primed with 2000 units of heparin each. The catheter was primed with 2 mg of TPA in each catheter. The patient tolerated the procedure well. There were no immediate postprocedure complications. Versed was used for anxiolysis. Conscious sedation was not utilized secondary to patient's submassive pulmonary embolism. Continuous cardiopulmonary monitoring was utilized under the guidance of radiologic nursing. Impression: Placement of bilateral pulmonary EKOS thrombolytics catheters, pulmonary angiography to confirm placement.
[2021-12-14] MEDS ORDERED: HEPARIN/ 0.45% NACL DRIP 50,000 UNIT/1,000 ML BAG ONE (15:22)
[2021-12-14 20:01] LABS: Fibrinogen 330 mg/dl (211-480)
[2021-12-14 20:04] LABS: Basophils % (Auto) 0.4 % (0.0-1.8); Eosinophils # (Auto) 0.1 K/mm3 (0.0-0.4); Eosinophils % (Auto) 1.5 % (0.0-4.3); Hematocrit 46.2 % (35.5-45.6); Hemoglobin 14.9 gm/dl (11.8-15.2); Lymphocytes # (Auto) 1.2 K/mm3 (1.2-5.4); Lymphocytes % (Auto) 13.5 % (13.4-35.0); Mean Corpuscular HGB Conc 32 % (32-34); Mean Corpuscular Volume 88 fl (84-94); Monocytes # (Auto) 0.8 K/mm3 (0.0-0.8); Monocytes % (Auto) 8.7 % (0.0-7.3); Platelet Count 231 K/mm3 (140-440); Red Blood Count 5.25 M/mm3 (3.65-5.03); Red Cell Distribution Width 14.1 % (13.2-15.2)
[2021-12-14] MEDS: HYDROcodone/ACETAMINOPHEN 5-325 MG TAB PO PRN (21:04)
[2021-12-14] MEDS: FAMOTIDINE 20 MG TAB PO SCH (21:05)
[2021-12-15 00:33] LABS: Basophils # (Auto) 0.1 K/mm3 (0.0-0.1); Basophils % (Auto) 0.6 % (0.0-1.8); Eosinophils # (Auto) 0.2 K/mm3 (0.0-0.4); Eosinophils % (Auto) 1.7 % (0.0-4.3); Lymphocytes # (Auto) 1.2 K/mm3 (1.2-5.4); Lymphocytes % (Auto) 13.1 % (13.4-35.0); Mean Corpuscular HGB Conc 31 % (32-34); Mean Corpuscular Volume 88 fl (84-94); Monocytes # (Auto) 0.8 K/mm3 (0.0-0.8); Monocytes % (Auto) 8.4 % (0.0-7.3); Platelet Count 256 K/mm3 (140-440); Red Blood Count 5.24 M/mm3 (3.65-5.03); Red Cell Distribution Width 14.1 % (13.2-15.2)
[2021-12-15 00:38] LABS: Hematocrit 46.4 % (35.5-45.6); Hemoglobin 14.2 gm/dl (11.8-15.2)
[2021-12-15 00:57] LABS: Fibrinogen 321 mg/dl (211-480)
[2021-12-15] MEDS: HYDROcodone/ACETAMINOPHEN 5-325 MG TAB PO PRN ×2 (03:34→21:31)
[2021-12-15 06:32] LABS: Basophils % (Auto) 0.4 % (0.0-1.8); Eosinophils # (Auto) 0.2 K/mm3 (0.0-0.4); Eosinophils % (Auto) 1.8 % (0.0-4.3); Hematocrit 44.8 % (35.5-45.6); Hemoglobin 14.3 gm/dl (11.8-15.2); Lymphocytes # (Auto) 1.1 K/mm3 (1.2-5.4); Lymphocytes % (Auto) 12.4 % (13.4-35.0); Mean Corpuscular HGB Conc 32 % (32-34); Mean Corpuscular Volume 89 fl (84-94); Monocytes # (Auto) 0.7 K/mm3 (0.0-0.8); Monocytes % (Auto) 7.5 % (0.0-7.3); Platelet Count 208 K/mm3 (140-440); Red Blood Count 5.06 M/mm3 (3.65-5.03); Red Cell Distribution Width 14.1 % (13.2-15.2)
[2021-12-15 06:38] LABS: BUN/Creatinine Ratio 11; Blood Urea Nitrogen 10 mg/dL (9-20); Calcium 8.2 mg/dL (8.4-10.2); Hemolysis Index 4
[2021-12-15 06:39] LABS: Fibrinogen 319 mg/dl (211-480)
[2021-12-15] MEDS: FAMOTIDINE 20 MG TAB PO SCH ×3 (10:27→21:31)
[2021-12-15] MEDS ORDERED: HEPARIN 10,000 UNITS/10 ML VIAL ONE (11:46)
[2021-12-15] MEDS ORDERED: HEPARIN/NS 5000 UNIT/500ML 500 ML IR ONE (11:46)
[2021-12-15] MEDS ORDERED: fentaNYL 100 MCG/2 ML INJ ONE (11:46)
[2021-12-15] MEDS ORDERED: MIDAZOLAM 2 MG/2 ML INJ ONE (11:46)
[2021-12-15] MEDS ORDERED: LIDOCAINE (2%) 20 MG/1 ML VIAL 20 ML MDV INFILTRATI ONE ×2 (11:47→12:45)
[2021-12-15] MEDS ORDERED: MIDAZOLAM 2 MG/2 ML INJ IV ONE (12:44)
[2021-12-15] MEDS ORDERED: fentaNYL 100 MCG/2 ML INJ IV ONE (12:45)
--- NOTE | 2021-12-15 12:54 | Operative Report ---
Operative Report Operative Report: Date of Procedure: 12/15/2021 Pre-operative Diagnosis: Submassive Pulmonary Embolus Status Post EKOS Thromboly sis Post-operative Diagnosis: Same Procedure(s): 1. Removal of Bilateral Pulmonary Artery EKOS Thrombolysis Catheters 2. Follow-up Pulmonary Artery Angiogram 3. Radiologic Supervision with Interpretation 4. Monitor Moderate Sedation (Total Anesthesia Time: 15 Minutes) Surgeon: Juan Carlos Wynn M.D. Product Promoter Sales Person: None Anesthesia: Local/Monitored Moderate Sedation Total Anesthesia Time: 15 Minutes EBL: Minimal Counts: Correct Complications: None Condition: Stable Specimen: None Indication: The patient is a 36-year-old male who presented with a submassive pulmonary embolus requiring thrombolysis of bilateral pulmonary arteries. He presents for removal of the EKOS thrombolysis catheters as well as a follow-up angiogram. He was given the risk, benefits, and alternative procedures and consented to the procedure. Angiographic Findings: The left pulmonary artery angiogram revealed no significant residual thrombus within the left main pulmonary artery. The segmental branches appeared to be free of significant thrombus however it was difficult to evaluate the subsegmental branches secondary to body habitus. The right pulmonary artery angiogram revealed no significant residual thrombus within the left main pulmonary artery. The segmental branches appeared to be free of significant thrombus however it was difficult to evaluate the subsegmental branches secondary to body habitus. Description of Procedure: The patient was brought to the [facility] and laid in supine position. After he was adequately sedated his right groin and indwelling catheters were prepped and draped in normal sterile fashion. Lidocaine was used to anesthetize the skin and soft tissue surrounding the sheath in the right common femoral vein and the suture securing the sheath was then cut with an 11 blade. I removed the ultrasound wire from the left pulmonary artery thrombolysis catheter and pulled the catheter back into the proximal left pulmonary artery. A diagnostic pulmonary artery angiogram was performed the previous described findings. I then cut the suture on the catheter within the left pulmonary artery and remove the ultrasound wire. I pulled the catheter back into the proximal right pulmonary artery and performed a diagnostic pulmonary artery angiogram of the previous described findings. At that point both catheters were removed and then the sheaths in the right femoral vein were removed and manual pressure was held to achieve hemostasis. Once hemostasis was achieved sterile dressings were applied to the right groin entry site and the patient was transported back to the intensive care unit in stable condition.
--- NOTE | 2021-12-15 13:11 | Progress Note ---
Assessment and Plan Assessment and plan: History of present illness: 36-year-old male with history of tobacco abuse was brought to the hospital because of shortness of breath that began this morning at 5:30 AM once he got off work. He states he is also been experiencing palpitations and states that he feels like his heart is skipping. He denies any cough, fever, vomiting, diarrhea, hemoptysis, leg swelling, calf pain. He denies any recent travel, recent surgery, sick contacts, hormone use. Patient states that he was advised when he was in juvenile senior care as a teenager that he had hypertension and he was put on medication at that time but states he has not seen a doctor in several years and has not been on any medication and he does not know what he previously took. No allergies to medication. He states he does have a family cardiac history under the age of 65. He is a current every day smoker. In the emergency room patient is found to have PE.'s were going to admit the patient to the [facility]. We will put the patient on heparin drip and consult vascular surgeon to see the patient. Hospital Course to date 12/14: Remains hemodynamically stable. On nasal cannula. Continue heparin infusion. Vascular surgery consulted on admission. Awaiting recommendations. 12/15: S/p ekos catheter placement. Remains on 4l/min nc. Gone to [facility] director this AM for removal. If VSS and no signfiicant bleeding, can be downgraded to tele bed this afternoon. Anticipate d/c in next 24-48 hrs. (1) Bilateral pulmonary embolism Current Visit: Yes Status: Acute Plan to address problem: Denies prior hx of VTE, no recent surgery, travel. Denies active malignancy. Admit the patient to the [facility]. Oxygen via nasal cannula 3 L/min. DuoNeb by nebulizer every 4 hours. Albuterol via nebulizer every 4 hours as needed. Heparin drip as per protocol. consult vascular surgeon: s/p EKOS catheter placement, at [facility] today for removal. Will likely need snf anticoagulation, possibly life long as this appears unprovoked. (2) Acute hypoxic respiratory failure Current Visit: Yes Status: Acute Qualifiers: Respiratory failure complication: hypoxia Qualified Code(s): J96.01 - Acute respiratory failure with hypoxia Plan to address problem: Oxygen via nasal cannula 3 L/min. DuoNeb by nebulizer every 4 hours. Albuterol via nebulizer every 4 hours as needed. Heparin drip as per protocol. consult vascular surgeon (3) Tobacco abuse Current Visit: Yes Status: Acute Plan to address problem: - counseled the patient regarding quitting smoking. + 15 mins (4) DVT prophylaxis Current Visit: Yes Status: Acute Plan to address problem: Heparin drip for DVT prophylaxis. Pepcid 20 mg p.o. twice daily for GI prophylaxis. Patient is a full code #Advance care planning Disease education conducted, care plan discussed, diagnoses discussed, prognosis discussed, patient is full code, patient acknowledges understanding and agree with care plan, +30 minutes. The high probability of a clinically significant, sudden or life threatening deterioration of the [pulmonary, heme] system(s) required my full and direct attention, intervention and personal management. The aggregate critical care time was [60] minutes. This time is in addition to time spent performing reported procedures but includes the following: [x] Data Review and interpretation [x] Patient assessment and monitoring of vital signs [x] Documentation [x] Medication orders and management History Interval history: no complaints. EKOS catheters in place. Patient to [facility] laboratory director late this AM. Hospitalist Physical - Physical exam Narrative exam: Physical Exam: VITAL SIGNS: Reviewed. GENERAL: The patient appears normally developed, Vital signs as documented. on 4l/min nc. HEAD: No signs of head trauma. EYES: Pupils are equal. Extraocular motions intact. EARS: Hearing grossly intact. MOUTH: Oropharynx is normal. NECK: No adenopathy, no JVD. CHEST: Chest with clear breath sounds bilaterally. No wheezes, rales, or rhonchi. CARDIAC: Regular rate and rhythm. S1 and S2, without murmurs, gallops, or rubs. VASCULAR: No Edema. Peripheral pulses normal and equal in all extremities. ABDOMEN: EKOS catheters in place. Soft, non tender and non distended. No rebound or guarding, and no masses palpated. Bowel Sounds normal. MUSCULOSKELETAL: Good range of motion of all major joints. Extremities without clubbing, cyanosis or edema. NEUROLOGIC EXAM: Alert and oriented x 4. no focal sensory or strength deficits. PSYCHIATRIC: Mood normal. SKIN: detail exam as documented in skin assessment - Constitutional Vitals: Temp Pulse Resp BP Pulse Ox 97.7 F 88 15 136/100 96 12/15/21 08:00 12/15/21 10:00 12/15/21 10:00 12/15/21 10:00 12/15/21 11:02 General appearance: Present: mild distress HEART Score - HEART Score Troponin: Troponin T < 0.010 ng/mL (0.00-0.029) 12/14/21 02:07 Results - Labs CBC & Chem 7: 12/15/21 05:28 12/15/21 05:28 Labs: Laboratory Last Values WBC 9.1 K/mm3 (4.5-11.0) 12/15/21 05:28 RBC 5.06 M/mm3 (3.65-5.03) H 12/15/21 05:28 Hgb 14.3 gm/dl (11.8-15.2) 12/15/21 05:28 Hct 44.8 % (35.5-45.6) 12/15/21 05:28 MCV 89 fl (84-94) 12/15/21 05:28 MCH 28 pg (28-32) 12/15/21 05:28 MCHC 32 % (32-34) 12/15/21 05:28 RDW 14.1 % (13.2-15.2) 12/15/21 05:28 Plt Count 208 K/mm3 (140-440) 12/15/21 05:28 Lymph % (Auto) 12.4 % (13.4-35.0) L 12/15/21 05:28 Rogers % (Auto) 7.5 % (0.0-7.3) H 12/15/21 05:28 Eos % (Auto) 1.8 % (0.0-4.3) 12/15/21 05:28 Baso % (Auto) 0.4 % (0.0-1.8) 12/15/21 05:28 Lymph # (Auto) 1.1 K/mm3 (1.2-5.4) L 12/15/21 05:28 Rogers # (Auto) 0.7 K/mm3 (0.0-0.8) 12/15/21 05:28 Eos # (Auto) 0.2 K/mm3 (0.0-0.4) 12/15/21 05:28 Baso # (Auto) 0.0 K/mm3 (0.0-0.1) 12/15/21 05:28 Seg Neutrophils % 77.9 % (40.0-70.0) H 12/15/21 05:28 Seg Neutrophils # 7.1 K/mm3 (1.8-7.7) 12/15/21 05:28 PT 14.3 Sec. (12.2-14.9) 12/14/21 13:35 INR 1.00 (0.87-1.13) 12/14/21 13:35 APTT 30.7 Sec. (24.2-36.6) 12/14/21 13:35 Fibrinogen 319 mg/dl (211-480) 12/15/21 05:28 D-Dimer 3670.36 ng/mlDDU (0-234) H 12/13/21 23:16 Heparin Anti-Xa Level < 0.10 U.I./ml (0.3-0.7) L 12/15/21 05:28 Sodium 136 mmol/L (137-145) L 12/15/21 05:28 Potassium 3.9 mmol/L (3.6-5.0) 12/15/21 05:28 Chloride 102.4 mmol/L (98-107) 12/15/21 05:28 Carbon Dioxide 20 mmol/L (22-30) L 12/15/21 05:28 Anion Gap 18 mmol/L 12/15/21 05:28 BUN 10 mg/dL (9-20) 12/15/21 05:28 Creatinine 0.9 mg/dL (0.8-1.3) 12/15/21 05:28 Estimated GFR > 60 ml/min 12/15/21 05:28 BUN/Creatinine Ratio 11 % 12/15/21 05:28 Glucose 107 mg/dL (75-100) H 12/15/21 05:28 Calcium 8.2 mg/dL (8.4-10.2) L 12/15/21 05:28 Magnesium 1.90 mg/dL (1.7-2.3) 12/13/21 23:16 Total Bilirubin 0.60 mg/dL (0.1-1.2) 12/13/21 23:16 AST 18 units/L (5-40) 12/13/21 23:16 ALT 22 units/L (7-56) 12/13/21 23:16 Alkaline Phosphatase 135 units/L (35-129) H 12/13/21 23:16 Troponin T < 0.010 ng/mL (0.00-0.029) 12/14/21 02:07 NT-Pro-B Natriuret Pep 1405 pg/mL (0-450) H 12/13/21 23:16 Total Protein 8.3 g/dL (6.3-8.2) H 12/13/21 23:16 Albumin 4.2 g/dL (3.9-5) 12/13/21 23:16 Albumin/Globulin Ratio 1.0 % 12/13/21 23:16 TSH 2.130 mlU/mL (0.270-4.200) 12/13/21 23:16 Coronavirus (PCR) Negative (Negative) 12/14/21 08:37 Active Medications - Current Medications Current Medications: Generic Name Dose Route Start Last Admin Trade Name Freq PRN Reason Stop Dose Admin Acetaminophen 650 mg 12/14/21 13:00 Acetaminophen 325 Mg Tab PO Q6H PRN Pain, Mild (1-3) Hydrocodone Bitart/Acetaminophen 2 each 12/14/21 13:00 12/15/21 03:34 Hydrocodone/Acetaminophen 5-325 Mg Tab PO 2 each Q6H PRN Administration Pain, Moderate (4-6) Albuterol 2.5 mg 12/14/21 03:58 Albuterol 2.5 Mg/3 Ml Nebu IH Q3HRT PRN Shortness Of Breath Apixaban 10 mg 12/15/21 13:00 Apixaban 5 Mg Tab PO 12/21/21 22:01 Q12HR MINERVA Protocol Apixaban 5 mg 12/22/21 10:00 Apixaban 5 Mg Tab PO Q12HR MINERVA Protocol Famotidine 20 mg 12/14/21 10:00 12/15/21 10:57 Famotidine 20 Mg Tab PO 20 mg BID MINERVA Administration Hydromorphone HCl 0.5 mg 12/14/21 03:58 Hydromorphone 1 Mg/1 Ml Inj IV Q3H PRN Pain , Severe (7-10) Dextrose/Sodium Chloride 1,000 mls @ 100 mls/hr 12/14/21 04:00 12/14/21 04:13 D5/0.45ns IV 100 mls/hr DIRECT MINERVA Administration Morphine Sulfate 2 mg 12/14/21 03:58 Morphine 2 Mg/1 Ml Inj IV Q4H PRN Pain, Moderate (4-6) Morphine Sulfate 4 mg 12/14/21 14:00 Morphine 4 Mg/1 Ml Inj IV Q4H PRN Pain , Severe (7-10) Ondansetron HCl 4 mg 12/14/21 03:58 Ondansetron 4 Mg/2 Ml Inj IV Q8H PRN Nausea And Vomiting Sodium Chloride 10 ml 12/14/21 10:00 12/15/21 10:57 Sodium Chloride 0.9% 10 Ml Flush Syringe IV 10 ml BID MINERVA Administration Sodium Chloride 10 ml 12/14/21 03:58 Sodium Chloride 0.9% 10 Ml Flush Syringe IV PRN PRN LINE FLUSH Tramadol HCl 50 mg 12/14/21 14:00 Tramadol 50 Mg Tab PO Q6H PRN Pain, Moderate (4-6)
[2021-12-15 17:12] LABS: Hematocrit 42.9 % (35.5-45.6); Hemoglobin 13.8 gm/dl (11.8-15.2); Mean Corpuscular HGB Conc 32 % (32-34); Mean Corpuscular Volume 87 fl (84-94); Platelet Count 169 K/mm3 (140-440); Red Blood Count 4.91 M/mm3 (3.65-5.03); Red Cell Distribution Width 14.2 % (13.2-15.2)
[2021-12-15 17:29] LABS: INR 1.03 (0.87-1.13)
[2021-12-15 17:30] LABS: Partial Thromboplastin Time 30.5 Sec. (24.2-36.6)
[2021-12-15 20:46] LABS: ABG Base Excess -2.6 mmol/L (-2.0-3.0); ABG HCO3 20.2 mmol/L (20.0-26.0); ABG Methemoglobin 0.5 % (0.0-1.5); ABG Oxygen Saturation 93.8 % (95.0-99.0); ABG PCO2 29.9 mm Hg; ABG PH 7.447 pH Units (7.350-7.450); ABG PO2 64.4 mm Hg (80.0-90.0)
[2021-12-15] MEDS: APIXABAN 5 MG TAB PO SCH (22:45)
[2021-12-16] MEDS: ACETAMINOPHEN 325 MG TAB PO PRN (07:55)
[2021-12-16] MEDS: APIXABAN 5 MG TAB PO SCH ×2 (10:27→21:33)
[2021-12-16] MEDS: FAMOTIDINE 20 MG TAB PO SCH (13:30)
--- NOTE | 2021-12-16 18:13 | Progress Note ---
Assessment and Plan Doing well. HR improved. Still on oxygen. Discussed with nurse to attempt to wean oxygen. Anticoagulation for 3-6 months. Will need hypercoagulability workup as outpatient with heme to determine if lifelong required. Subjective Date of service: 12/16/21 Interval history: Doing well. Still on oxygen. Discussed thrombolysis and oral anticoagulation. Objective - Constitutional Vitals: Vital Signs - 12hr 12/16/21 12/16/21 12/16/21 06:30 07:00 07:30 Temperature Pulse Rate 100 H 101 H 101 H Pulse Rate [ Left Radial] Pulse Rate [ Right Radial] Respiratory 22 23 33 H Rate Blood Pressure 172/94 132/91 117/93 O2 Sat by Pulse 97 91 91 Oximetry 12/16/21 12/16/21 12/16/21 08:00 08:30 08:55 Temperature 98.3 F Pulse Rate 103 H 103 H Pulse Rate [ 102 H Left Radial] Pulse Rate [ 102 H Right Radial] Respiratory 16 16 12 Rate Blood Pressure 155/98 150/93 O2 Sat by Pulse 87 94 Oximetry 12/16/21 12/16/21 12/16/21 09:00 09:30 10:00 Temperature Pulse Rate 101 H 97 H 94 H Pulse Rate [ Left Radial] Pulse Rate [ Right Radial] Respiratory 15 27 H 28 H Rate Blood Pressure 141/100 140/92 126/94 O2 Sat by Pulse 93 97 Oximetry 12/16/21 12/16/21 12/16/21 10:30 11:00 11:30 Temperature Pulse Rate 97 H 89 88 Pulse Rate [ Left Radial] Pulse Rate [ Right Radial] Respiratory 22 24 31 H Rate Blood Pressure 129/100 143/84 134/96 O2 Sat by Pulse 92 98 96 Oximetry 12/16/21 12/16/21 12/16/21 12:00 12:30 13:00 Temperature 98.0 F Pulse Rate 91 H Pulse Rate [ 96 H Left Radial] Pulse Rate [ 96 H Right Radial] Respiratory 14 Rate Blood Pressure 154/102 142/106 141/110 O2 Sat by Pulse 96 95 94 Oximetry 12/16/21 12/16/21 12/16/21 13:30 14:00 14:30 Temperature Pulse Rate 87 87 94 H Pulse Rate [ Left Radial] Pulse Rate [ Right Radial] Respiratory 29 H 29 H 14 Rate Blood Pressure 126/101 134/95 131/107 O2 Sat by Pulse 100 94 93 Oximetry 12/16/21 12/16/21 12/16/21 15:00 15:30 16:00 Temperature Pulse Rate 92 H 92 H 95 H Pulse Rate [ 96 H Left Radial] Pulse Rate [ 96 H Right Radial] Respiratory 17 17 29 H Rate Blood Pressure 150/96 162/101 144/97 O2 Sat by Pulse 98 95 95 Oximetry 12/16/21 12/16/21 12/16/21 16:30 17:00 17:30 Temperature Pulse Rate 89 87 92 H Pulse Rate [ Left Radial] Pulse Rate [ Right Radial] Respiratory 23 27 H 22 Rate Blood Pressure 137/104 139/115 149/111 O2 Sat by Pulse 100 96 Oximetry 12/16/21 18:00 Temperature Pulse Rate 96 H Pulse Rate [ Left Radial] Pulse Rate [ Right Radial] Respiratory 28 H Rate Blood Pressure 147/117 O2 Sat by Pulse 96 Oximetry General appearance: Present: no acute distress - EENT Eyes: EOM intact ENT: hearing intact - Respiratory Respiratory effort: normal Extremities: normal temperature - Gastrointestinal General gastrointestinal: Present: soft, non-tender - Psychiatric Psychiatric: appropriate mood/affect, cooperative - Labs CBC & Chem 7: 12/15/21 16:27 12/15/21 16:27 Labs: Abnormal lab results 12/15/21 Range/Units 20:40 ABG pO2 64.4 L (80.0-90.0) mm Hg ABG O2 Saturation 93.8 L (95.0-99.0) % ABG Base Excess -2.6 L (-2.0-3.0) mmol/L Oxyhemoglobin 91.9 L (95.0-99.0) % Medications & Allergies - Medications Allergies/Adverse Reactions: Allergies No Known Allergies Allergy (Unverified 12/13/21 22:51) Home Medications: Home Medications Medication Instructions Recorded Confirmed Last Taken Type Apixaban [Eliquis] 5 mg PO BID #60 12/15/21 Unknown Rx Active Medications: Generic Name Dose Route Start Last Admin Trade Name Freq PRN Reason Stop Dose Admin Acetaminophen 650 mg 12/14/21 13:00 12/16/21 07:55 Acetaminophen 325 Mg Tab PO 650 mg Q6H PRN Administration Pain, Mild (1-3) Hydrocodone Bitart/Acetaminophen 2 each 12/14/21 13:00 12/15/21 21:31 Hydrocodone/Acetaminophen 5-325 Mg Tab PO 2 each Q6H PRN Administration Pain, Moderate (4-6) Albuterol 2.5 mg 12/14/21 03:58 12/15/21 20:32 Albuterol 2.5 Mg/3 Ml Nebu IH 2.5 mg Q3HRT PRN Administration Shortness Of Breath Apixaban 10 mg 12/15/21 15:00 12/16/21 10:27 Apixaban 5 Mg Tab PO 12/21/21 22:01 10 mg Q12HR MINERVA Administration Protocol Apixaban 5 mg 12/22/21 10:00 Apixaban 5 Mg Tab PO Q12HR MINERVA Protocol Famotidine 20 mg 12/14/21 10:00 12/16/21 13:30 Famotidine 20 Mg Tab PO 20 mg BID MINERVA Administration Hydromorphone HCl 0.5 mg 12/14/21 03:58 Hydromorphone 1 Mg/1 Ml Inj IV Q3H PRN Pain , Severe (7-10) Dextrose/Sodium Chloride 1,000 mls @ 100 mls/hr 12/14/21 04:00 12/14/21 04:13 D5/0.45ns IV 100 mls/hr DIRECT MINERVA Administration Morphine Sulfate 2 mg 12/14/21 03:58 Morphine 2 Mg/1 Ml Inj IV Q4H PRN Pain, Moderate (4-6) Morphine Sulfate 4 mg 12/14/21 14:00 Morphine 4 Mg/1 Ml Inj IV Q4H PRN Pain , Severe (7-10) Ondansetron HCl 4 mg 12/14/21 03:58 Ondansetron 4 Mg/2 Ml Inj IV Q8H PRN Nausea And Vomiting Sodium Chloride 10 ml 12/14/21 10:00 12/16/21 10:27 Sodium Chloride 0.9% 10 Ml Flush Syringe IV 10 ml BID MINERVA Administration Sodium Chloride 10 ml 12/14/21 03:58 Sodium Chloride 0.9% 10 Ml Flush Syringe IV PRN PRN LINE FLUSH Tramadol HCl 50 mg 12/14/21 14:00 Tramadol 50 Mg Tab PO Q6H PRN Pain, Moderate (4-6) HEART Score - HEART Score Troponin: Troponin T < 0.010 ng/mL (0.00-0.029) 12/14/21 02:07
[2021-12-16] MEDS: NICOTINE 21 MG/24 HR PATCH TD SCH (19:58)
[2021-12-16] MEDS: HYDROcodone/ACETAMINOPHEN 5-325 MG TAB PO PRN (19:58)
[2021-12-17] MEDS: HYDROcodone/ACETAMINOPHEN 5-325 MG TAB PO PRN (02:47)
[2021-12-17] MEDS: FAMOTIDINE 20 MG TAB PO SCH ×2 (04:29→10:37)
[2021-12-17 05:52] LABS: Hematocrit 41.8 % (35.5-45.6); Hemoglobin 13.5 gm/dl (11.8-15.2); Mean Corpuscular HGB Conc 32 % (32-34); Mean Corpuscular Volume 88 fl (84-94); Platelet Count 179 K/mm3 (140-440); Red Blood Count 4.75 M/mm3 (3.65-5.03)
[2021-12-17] MEDS: ACETAMINOPHEN 325 MG TAB PO PRN (08:47)
[2021-12-17] MEDS: APIXABAN 5 MG TAB PO SCH ×2 (10:37→10:42)
[2021-12-17] MEDS: NICOTINE 21 MG/24 HR PATCH TD SCH (10:38)
[2021-12-17 13:56] VITALS: BP 145/97
--- NOTE | 2021-12-17 14:17 | Discharge Summary ---
Providers - Providers Date of Admission: 12/14/21 03:58 Date of discharge: 12/17/21 Attending physician: KEVEN STAFFORD MD 12/14/21 03:01 Consult to Physician [CONS] Stat Comment: Consulting Provider: BLANCO ALEX Physician Instructions: Reason For Exam: bilateral PEs Primary care physician: [employer] MANAGER Hospitalization Condition: Stable Hospital course: Patient is currently asymptomatic. He is eager to go home. Vital signs stable. O2 discontinued last night. He has been on room air since. Home O2 assessment was performed by the nurse and reports that patient maintained a normal sats with ambulation. Patient received Eliquis samples from Dr. Wynn and a prescription for Eliquis was also already sent. Patient also has an appointment for follow-up. Disposition: HOME / SELF CARE / HOMELESS Exam - Constitutional Vitals: Temp Pulse Resp BP Pulse Ox 97.2 F L 89 18 145/97 92 12/17/21 12:11 12/17/21 12:11 12/17/21 12:11 12/17/21 12:11 12/17/21 12:11 General appearance: Present: no acute distress, obese (Morbidly obese, BMI 56) - EENT Eyes: Present: PERRL, EOM intact ENT: clear oral mucosa - Neck Neck: Present: supple - Respiratory Respiratory effort: normal Respiratory: bilateral: CTA - Cardiovascular Rhythm: regular - Extremities Extremities: No edema - Abdominal General gastrointestinal: Present: soft, non-tender, normal bowel sounds - Integumentary Integumentary: Absent: rash - Musculoskeletal Musculoskeletal: strength equal bilaterally - Neurologic Neurologic: no focal deficits, moves all extremities Plan Activity: advance as tolerated Diet: low fat, low salt Follow up with: BLANCO KHALIL MD [Staff Physician] - 14 Days Prescriptions: Apixaban [Eliquis] 5 mg PO BID #60
[2021-12-22] MEDS ORDERED: APIXABAN 5 MG TAB PO SCH (10:00)
== END 2021-12-17 15:25 | disposition home or self-care (01) | DRG 175 ==
LOC: ED 22:25 → IMCU 12-14 03:58 → CC1 12-14 16:51 → 4A 12-17 00:40
PROVIDERS: ADMIT Hospitalist; ATTEND Internal Medicine
PROC: 02HQ33Z Insertion of Infusion Device into Right Pulmonary Artery, Percutaneous Approach (ICD-10-PCS; principal; 2021-12-14)
PROC: 02HR33Z Insertion of Infusion Device into Left Pulmonary Artery, Percutaneous Approach (ICD-10-PCS; 2021-12-14)
PROC: 3E06317 Introduction of Other Thrombolytic into Central Artery, Percutaneous Approach (ICD-10-PCS; 2021-12-14)
PROC: B31T1ZZ Fluoroscopy of Left Pulmonary Artery using Low Osmolar Contrast (ICD-10-PCS; 2021-12-15)
PROC: B31S1ZZ Fluoroscopy of Right Pulmonary Artery using Low Osmolar Contrast (ICD-10-PCS; 2021-12-15)
PROC: 02PYX3Z Removal of Infusion Device from Great Vessel, External Approach (ICD-10-PCS; 2021-12-15)
PROC: 4A033R1 Measurement of Arterial Saturation, Peripheral, Percutaneous Approach (ICD-10-PCS; 2021-12-15)
DX: I26.99 Other pulmonary embolism without acute cor pulmonale (principal); J96.01 Acute respiratory failure with hypoxia; I10 Essential (primary) hypertension; Z20.822 Contact with and (suspected) exposure to COVID-19
CPT/HCPCS: 36415; 36600; 37211; 37214; 71046; 71275; 80048; 80053; 82565; 82803; 83735; 83880; 84443; 84484; 85014; 85018; 85025; 85027; 85049; 85379; 85384; 85520; 85610; 85730; 93005; 93010; 94640; 94760; G0378; J3490; J7070; Q0162; C1757; C1769; C1894; J0690; J1644; J2250; J2997; J3010; J7030; J7040; J7050; Q9967; U0003